=== PATIENT | female | born 1935 | race Caucasian/White ===

== ENCOUNTER 2023-11-15 06:13 | Day surgery (SDC) | payer MEDICARE, OTHER ==
[2023-11-14 14:44] LABS: BASOPHILS % (AUTO) 0.5 % (0.0-2.0); EOSINOPHILS # (AUTO) 0.2 K/uL (0-0.4); EOSINOPHILS % (AUTO) 3.4 % (0.0-4.0); HEMATOCRIT 31.5 % (36-48); HEMOGLOBIN 10.5 g/dL (12.0-16.0); LYMPHOCYTES # (AUTO) 1.5 K/uL (2.5-16.5); LYMPHOCYTES % (AUTO) 31.4 % (20.5-51.1); MEAN CORPUSCULAR HEMOGLOBIN 32 pg (27-31); MEAN CORPUSCULAR HGB CONC 33 g/dL (33-37); MEAN CORPUSCULAR VOLUME 95.1 fL (80-94); MONOCYTES # (AUTO) 0.4 K/uL (0.8-1.0); MONOCYTES % (AUTO) 7.9 % (1.7-9.3); NEUTROPHILS # (AUTO) 2.7 K/uL (1.8-7.7); NEUTROPHILS % (AUTO) 56.8 % (42.2-75.2); PLATELET COUNT (AUTO) 226 K/uL (140-450); RED BLOOD CELL COUNT(AUTO) 3.32 MIL/uL (4.20-5.40); RED CELL DISTRIBUTION WIDTH 13.6 % (11.6-13.7); WHITE BLOOD COUNT (AUTO) 4.8 K/uL (4.8-10.8)
[2023-11-14 15:08] LABS: ALANINE AMINOTRANSFERASE 22 U/L (12-78); ALBUMIN 3.6 g/dL (3.4-5.0); ALKALINE PHOSPHATASE 120 U/L (50-136); ANION GAP 12.8 (8-16); ASPARTATE AMINOTRANSFERASE 14 U/L (15-37); CARBON DIOXIDE 28.5 mmol/L (21-32); CHLORIDE 104 mmol/L (98-107); GLUCOSE 94 mg/dL (74-106); POTASSIUM 4.3 mmol/L (3.5-5.1); SODIUM SERUM 141 mmol/L (136-145); TOTAL BILIRUBIN 0.4 mg/dL (0.0-1.0); TOTAL PROTEIN, SERUM 7.8 g/dL (6.4-8.2); UREA NITROGEN, BLOOD 24 mg/dL (7-18)
[~2023-11-15] VITALS: Ht 139.7 cm; Wt 54.4 kg
[2023-11-15] MEDS ORDERED: CONJUGATED ESTROGENS VAG CREAM 42 GM TUBE VG SCH (07:30)
[2023-11-15] MEDS ORDERED: PROPOFOL 200 MG/20 ML VIAL IV ONE (08:04)
[2023-11-15] MEDS ORDERED: ONDANSETRON 4 MG/2 ML VIAL ONE (08:05)
[2023-11-15] MEDS ORDERED: ROCURONIUM 50 MG/5 ML VIAL IV ONE (08:05)
[2023-11-15] MEDS ORDERED: DEXAMETHASONE 4 MG/ML VIAL ONE (08:05)
[2023-11-15] MEDS ORDERED: METOCLOPRAMIDE 10 MG/2 ML INJ VIAL ONE (08:05)
[2023-11-15] MEDS ORDERED: fentaNYL citrate 0.05 MG/ML VIAL ONE (08:06)
[2023-11-15] MEDS ORDERED: ceFAZolin 1,000 MG VIAL ONE (08:06)
[2023-11-15] MEDS ORDERED: SEVOFLURANE 250 ML BTL INH ONE (08:16)
[2023-11-15] MEDS: ceFAZolin 2,000 MG VIAL ONE (08:48)
[2023-11-15] MEDS: LIDOCAINE/EPI 1% 1:100000 20 ML VIAL INJ ONE (08:48)
[2023-11-15] MEDS: BUPIVACAINE-MPF 0.25% 30 ML VIAL INJ ONE (08:48)
[2023-11-15] MEDS ORDERED: LIDOCAINE/EPI 1% 1:100000 20 ML VIAL INJ ONE (09:09)
[2023-11-15] MEDS ORDERED: BUPIVACAINE-MPF 0.25% 30 ML VIAL INJ ONE (09:09)
[2023-11-15] MEDS ORDERED: HYDROmorphone 1 MG/ML AMP IVP PRN (09:15)
[2023-11-15] MEDS ORDERED: ONDANSETRON 4 MG/2 ML VIAL IVP PRN ×2 (09:15→10:00)
[2023-11-15] MEDS ORDERED: NEOSTIGMINE 1:1000 10 MG/10 ML VIAL ONE (09:22)
[2023-11-15] MEDS ORDERED: GLYCOPYRROLATE 0.2 MG/ML VIAL ONE (09:22)
[2023-11-15] MEDS ORDERED: KETOROLAC 30 MG/ML VIAL ONE (09:53)
[2023-11-15] MEDS ORDERED: oxyCODONE/APAP 5/325 MG 1 TAB TAB PO PRN (10:00)
[2023-11-15] MEDS ORDERED: diphenhydrAMINE 50 MG/ML VIAL IVP PRN (10:00)
== END 2023-11-15 15:05 | disposition home or self-care (01) ==
LOC: MDS 06:13 → MMU 06:29 → MDS 15:05
PROVIDERS: ATTEND Internal Medicine Gastroenterology
DX: N81.10 Cystocele, unspecified (principal); N81.6 Rectocele; R32 Unspecified urinary incontinence; I10 Essential (primary) hypertension; E78.5 Hyperlipidemia, unspecified; M19.90 Unspecified osteoarthritis, unspecified site; F41.9 Anxiety disorder, unspecified; Z90.710 Acquired absence of both cervix and uterus; Z98.890 Other specified postprocedural states
CPT/HCPCS: 36415; 57282; 80053; 85025; 93005; J1100; J1885; J2001; J2405; J2704; J2710; J2765; J3010; J3490; J7120; J0690